=== PATIENT | male | born 1945 | race Caucasian/White ===

== ENCOUNTER 2016-10-22 13:40 | Outpatient (CLI) | payer MEDICARE | END 2016-10-22 13:41 | disposition home or self-care (01) | DX: R91.8 Other nonspecific abnormal finding of lung field (principal) ==

== ENCOUNTER 2022-09-13 08:00 | Outpatient (CLI) | payer MEDICARE, OTHER ==
[2022-09-13 19:13] LABS: BILIRUBIN,URINE NEGATIVE (NEGATIVE); GLUCOSE, URINE (UA) NEGATIVE (NEGATIVE); KETONES,URINE (UA) NEGATIVE (NEGATIVE); LEUKOCYTE ESTERASE, URINE NEGATIVE (NEGATIVE); NITRITE,URINE NEGATIVE (NEGATIVE); OCCULT BLOOD,URINE NEGATIVE (NEGATIVE); PH,URINE 5.5 PH (5.0-7.5); PROTEIN,URINE NEGATIVE (NEGATIVE); UROBILINOGEN,URINE 0.2 (NORMAL) E.U./dL (NORMAL)
[2022-09-13 19:20] LABS: AMORPHOUS SEDIMENT,UR Marked /LPF; BACTERIA,URINE None Seen /HPF (None Seen); CLARITY,URINE CLOUDY (CLEAR); RBC,URINE None Seen /HPF (0-5); SQUAMOUS EPITHELIAL CELL,UR NONE SEEN (<= Few); WBC,URINE 0-3 /HPF (0-3)
== END 2022-09-13 23:59 | disposition home or self-care (01) ==
LOC: LAB 08:00
PROVIDERS: ATTEND Emergency Medicine
DX: N40.0 Benign prostatic hyperplasia without lower urinary tract symptoms (principal)
CPT/HCPCS: 36415; 81001; 84153; 87086

== ENCOUNTER 2022-09-13 13:41 | Outpatient (CLI) | payer MEDICARE, OTHER | END 2022-09-13 13:42 | disposition home or self-care (01) | LOC: LAB.S 13:41 | PROVIDERS: ATTEND Emergency Medicine | DX: N40.0 Benign prostatic hyperplasia without lower urinary tract symptoms (principal) | CPT/HCPCS: 36415; 84153 ==

== ENCOUNTER 2024-03-21 08:00 | Outpatient (CLI) | payer MEDICARE | END 2024-03-21 23:59 | disposition home or self-care (01) | LOC: LAB.S 08:00 | PROVIDERS: ATTEND Physician Assistant | DX: U07.1 COVID-19 (principal) ==

== ENCOUNTER 2024-03-22 08:49 | Outpatient (CLI) | payer MEDICARE, OTHER ==
[2024-03-22 09:21] LABS: ALBUMIN 4.1 g/dL (3.2-5.5); ALBUMIN/GLOBULIN RATIO 1.1 (1.0-2.2); BILIRUBIN,TOTAL 0.5 mg/dL (0.2-1.0); CALCIUM 9.1 mg/dL (8.5-10.3); CREATININE 0.8 mg/dL (0.6-1.3); POTASSIUM 3.4 mmol/L (3.5-4.5); TOTAL PROTEIN 7.8 g/dL (6.4-8.9)
== END 2024-03-22 08:50 | disposition home or self-care (01) ==
LOC: LAB 08:49
PROVIDERS: ATTEND Physician Assistant
DX: U07.1 COVID-19 (principal)
CPT/HCPCS: 36415; 80053